=== PATIENT | female | born 1985 | race Caucasian/White ===

== ENCOUNTER 2018-05-07 12:15 | Emergency (ER) | payer OTHER ==
[~2018-05-07] VITALS: Ht 172.7 cm; Wt 70.3 kg
[2018-05-07 12:20] VITALS: BP_SYST 111
[2018-05-07 13:17] VITALS: BP_SYST 119
== END 2018-05-07 13:17 | disposition home or self-care (01) ==
LOC: SED 12:15
DX: N39.0 Urinary tract infection, site not specified (principal); Z88.0 Allergy status to penicillin
CPT/HCPCS: 81025; 82962; 99282